=== PATIENT | female | born 1995 | race Native Hawaiian/Other Pacific Islander ===

== ENCOUNTER 2020-02-19 22:50 | Emergency (ER) | payer OTHER ==
[~2020-02-19] VITALS: Ht 170.2 cm; Wt 117.9 kg
[2020-02-19 23:54] LABS: PLATELET COUNT 200 K/uL (152-353)
[2020-02-20 00:11] LABS: POTASSIUM 3.8 mmol/L (3.6-5.2)
[2020-02-20 03:22] VITALS: BP 102/57; TEMP 98.4
== END 2020-02-20 03:24 | disposition home or self-care (01) ==
LOC: ED 22:50
PROVIDERS: Family Medicine
DX: N20.0 Calculus of kidney (principal)
CPT/HCPCS: 36415; 80053; 81000; 81025; 82150; 83690; 85027; 96360; 96365; 96375; 99284; J0696; J1885; J2405; Q9963